=== PATIENT | male | born 1985 ===

== ENCOUNTER 2022-07-31 22:39 | Emergency (ER) | payer SELFPAY ==
[2022-08-01] MEDS ORDERED: diphenhydrAMINE 50 MG/ML VIAL IV ONE (00:10)
[2022-08-01] MEDS ORDERED: FAMOTIDINE 20 MG/2 ML INJ IV ONE (00:10)
[2022-08-01] MEDS ORDERED: methylPREDNISolone Sod Succinate 125 MG/2 ML INJ IV ONE (00:10)
--- NOTE | 2022-08-01 00:15 | Emergency Department Report ---
ED General Adult HPI - General Chief complaint: Allergic Reaction Stated complaint: SEVERE ALLERGIC REACTION Time Seen by Provider: 08/01/22 00:10 Source: EMS Mode of arrival: Stretcher Limitations: No Limitations - History of Present Illness Initial comments: Patient 37-year-old male who presents for allergic reaction second episode of same and 2 weeks. Patient is from [facility]. States initial episodes after been exposed to chiggers and bug bites in his yard. Was treated in ED with Solu-Medrol Benadryl and Pepcid. Patient was DC'd home with Medrol pack. States symptoms were 90% resolved however once he got home he boarded the plane tonight started to return now with red blanchable rash to bilateral lower extremities trunk and bilateral upper extremities. There is no fevers no chills no shortness of breath no wheezing no stridor. He does not have history of asthma. There is no chest pain no nausea or vomiting. Primary concern is rash and itching. There are no other symptoms. - Related Data Previous Rx's Medication Instructions Recorded Last Taken Type EPINEPHrine [Epipen 2-Mick] 0.3 mg IJ PRN PRN #1 kit 08/01/22 Unknown Rx Famotidine [Pepcid] 20 mg PO BID 7 Days #14 tablet 08/01/22 Unknown Rx Ibuprofen [Motrin 800 MG tab] 800 mg PO Q8HR PRN #30 tablet 08/01/22 Unknown Rx diphenhydrAMINE [Benadryl CAP] 25 mg PO Q6HR PRN #30 capsule 08/01/22 Unknown Rx predniSONE [Deltasone] 40 mg PO QDAY 5 Days #10 tab 08/01/22 Unknown Rx Allergies Allergy/AdvReac Type Severity Reaction Status Date / Time No Known Allergies Allergy Unverified 07/31/22 22:53 ED Review of Systems ROS: Stated complaint: SEVERE ALLERGIC REACTION Other details as noted in HPI Constitutional: denies: chills, fever Eyes: denies: eye pain, eye discharge, vision change ENT: denies: ear pain, throat pain Respiratory: denies: cough, shortness of breath, wheezing Cardiovascular: denies: chest pain, palpitations Endocrine: no symptoms reported Gastrointestinal: denies: abdominal pain, nausea, diarrhea Genitourinary: denies: urgency, dysuria Musculoskeletal: denies: back pain, joint swelling, arthralgia Skin: rash, pruritus. denies: lesions Neurological: denies: headache, weakness, paresthesias Psychiatric: denies: anxiety, depression Hematological/Lymphatic: denies: easy bleeding, easy bruising ED Past Medical Hx - Past Medical History Previous Medical History?: No - Surgical History Past Surgical History?: No - Social History Smoking Status: Never Smoker Substance Use Type: None - Medications Home Medications: Home Medications Medication Instructions Recorded Confirmed Last Taken Type EPINEPHrine [Epipen 2-Mick] 0.3 mg IJ PRN PRN #1 kit 08/01/22 Unknown Rx Famotidine [Pepcid] 20 mg PO BID 7 Days #14 tablet 08/01/22 Unknown Rx Ibuprofen [Motrin 800 MG tab] 800 mg PO Q8HR PRN #30 tablet 08/01/22 Unknown Rx diphenhydrAMINE [Benadryl CAP] 25 mg PO Q6HR PRN #30 capsule 08/01/22 Unknown Rx predniSONE [Deltasone] 40 mg PO QDAY 5 Days #10 tab 08/01/22 Unknown Rx ED Physical Exam - General Limitations: No Limitations General appearance: alert, in no apparent distress - Head Head exam: Present: normocephalic, normal inspection - Eye Eye exam: Present: PERRL, EOMI Pupils: Present: normal accommodation - ENT ENT exam: Present: normal orophraynx, mucous membranes moist - Expanded ENT Exam Expanded Throat exam: Positive: other (Uvula remains midline to rise and fall, there is no lesions no exudate no stridor airway is patent. Respirations are even and nonlabored). Negative: tonsillar erythema, tonsillomegaly, tonsillar exudate, R peritonsillar mass, L peritonsillar mass - Neck Neck exam: Present: normal inspection, full ROM. Absent: tenderness, lymphadenopathy - Respiratory Respiratory exam: Present: normal lung sounds bilaterally. Absent: respiratory distress, wheezes, stridor, chest wall tenderness - Cardiovascular Cardiovascular Exam: Present: regular rate, normal rhythm, normal heart sounds. Absent: systolic murmur, diastolic murmur, rubs, gallop - GI/Abdominal GI/Abdominal exam: Present: soft, normal bowel sounds. Absent: distended, tenderness - Rectal Rectal exam: Present: deferred - Extremities Exam Extremities exam: Present: normal inspection, full ROM, normal capillary refill - Back Exam Back exam: Present: normal inspection, full ROM. Absent: CVA tenderness (R), CVA tenderness (L) - Neurological Exam Neurological exam: Present: alert, oriented X3, CN II-XII intact, normal gait - Expanded Neurological Exam Expanded Patient oriented to: Present: person, place, time Speech: Present: fluid speech Motor strength exam: RUE: 5, LUE: 5, RLE: 5, LLE: 5 Best Eye Response ([place]): (4) open spontaneously Best Motor Response ([place]): (6) obeys commands Best Verbal Response ([place]): (5) oriented [place] Total: 15 - Psychiatric Psychiatric exam: Present: normal affect, normal mood - Skin Skin exam: Present: warm, dry, intact, normal color, rash (Red smooth raised no weeping no fever noted to bilateral lower extremities trunk bilat upper extremities), erythema, urticaria ED Course Vital Signs 07/31/22 08/01/22 22:43 01:04 Temperature 97.1 F L Pulse Rate 60 Respiratory 16 18 Rate Blood Pressure 113/79 O2 Sat by Pulse 98 Oximetry ED Medical Decision Making - Medical Decision Making Rash is resolving, lung sounds remain clear there is no shortness of breath no wheezing no stridor no nausea no vomiting no fever no chills. Plan DC to home with prescriptions. Follow-up with your doctor in 2 to 3 days. Patient verbalized agreement and understanding of discharge plan. Patient DC'd home in stable condition at this time. Critical care attestation.: If time is entered above; I have spent that time in minutes in the direct care of this critically ill patient, excluding procedure time. ED Disposition Clinical Impression: Allergic reaction Qualifiers: Encounter type: initial encounter Qualified Code(s): T78.40XA - Allergy, unspecified, initial encounter Disposition: HOME / SELF CARE / HOMELESS Is pt being admited?: No Does the pt Need Aspirin: No Condition: Stable Instructions: Allergies, Adult Additional Instructions: Take medications as prescribed, follow-up with your doctor in 2 to 3 days. Re turn to emergency department if symptoms worsen. Prescriptions: diphenhydrAMINE [Benadryl CAP] 25 mg PO Q6HR PRN #30 capsule PRN Reason: itching allergies predniSONE [Deltasone] 40 mg PO QDAY 5 Days #10 tab EPINEPHrine [Epipen 2-Mick] 0.3 mg IJ PRN PRN #1 kit PRN Reason: severe allergy symptoms Ibuprofen [Motrin 800 MG tab] 800 mg PO Q8HR PRN #30 tablet PRN Reason: pain Famotidine [Pepcid] 20 mg PO BID 7 Days #14 tablet Referrals: GEORGIANA BEY MD [Staff Physician] - 3-5 Days Forms: Work/School Release Form(ED) Time of Disposition: 02:33
[2022-08-01] MEDS ORDERED: HYDROcodone/ACETAMINOPHEN 5-325 MG TAB PO ONE (00:57)
[2022-08-01 02:48] VITALS: BP 127/86
== END 2022-08-01 02:48 | disposition home or self-care (01) ==
LOC: ED 22:39
DX: T78.40XA Allergy, unspecified, initial encounter (principal)
CPT/HCPCS: 96374; 96375; 99283; J1200; J2930; J3490